=== PATIENT | female | born 1965 | race Caucasian/White ===

== ENCOUNTER 2019-06-13 04:58 | Day surgery (SDC) | payer BC ==
[2019-06-13] MEDS ORDERED: DEXAMETHASONE 4 MG/ML 1ML VIAL IVP ONE (04:59)
[2019-06-13] MEDS ORDERED: FENTANYL PF 100MCG/2ML VIAL IV ONE (04:59)
[2019-06-13] MEDS ORDERED: PROPOFOL 10 MG/ML VIAL IV ONE (04:59)
[2019-06-13] MEDS ORDERED: MIDAZOLAM HCL 2MG/2ML VIAL IV ONE (04:59)
[2019-06-13] MEDS ORDERED: ONDANSETRON HCL IV 4 MG/2 ML VIAL IVP ONE (04:59)
[2019-06-13] MEDS ORDERED: SEVOFLURANE 250 ML INH ONE (04:59)
[2019-06-13] MEDS ORDERED: LIDOCAINE 2% MDV (20MG/ML) 20ML VIAL IV ONE (04:59)
[2019-06-13] MEDS: RINGERS SOLUTION,LACTATED 1,000 ML IV ONE (05:30)
[2019-06-13] MEDS: METOCLOPRAMIDE 10 MG TABLET PO ONE (05:47)
[2019-06-13] MEDS: SCOPOLAMINE 1 PATCH TDSY TD ONE (05:47)
[2019-06-13] MEDS: FAMOTIDINE 20MG TABLET PO ONE (05:47)
[2019-06-13] MEDS: HYDROCODONE/APAP 5/325MG TABLET PO ONE (08:30)
--- NOTE | 2019-06-13 08:48 | Operative Note ---
DATE OF SURGERY: 06/13/2019 PREOPERATIVE DIAGNOSIS: POST MENOPAUSAL BLEEDING AND CERVICAL STENOSIS. POSTOPERATIVE DIAGNOSIS: POST MENOPAUSAL BLEEDING AND CERVICAL STENOSIS. OPERATION: OPERATIVE HYSTEROSCOPY, DILATATION AND CURETTAGE. SURGEON: Meryl Saba D.O. ANESTHESIA: General. SPECIMEN: Endometrial curettings. ESTIMATED BLOOD LOSS: Minimal. FLUIDS: Per Anesthesia drains 200 ml of clear yellow urine. FINDINGS: Anterior cervix, cervical stenosis noted, once cervix gently dilated the hysteroscope was inserted and bilateral ostia were visualized, uterus mid position and sounded to 7 cm. PROCEDURE: The patient was taken to the Operating Room and general anesthesia was obtained without difficulty. She was prepped and draped in a normal sterile fashion in dorsal lithotomy position. A weighted speculum was placed in the patient's vagina and the anterior lip of the cervix was grasped with a single tooth tenaculum. The cervix was gently dilated with Hanks dilators and sounded to 7 cm. The hysteroscope was then primed according to protocol and gently introduced to the uterine fundus with findings as noted above. Pictures were taken and both ostia were seen. The hysteroscope was then converted to operative hysteroscope and a direct visualization endometrial curettage was performed including the anterior endometrial round mass. The hysteroscope was then removed and then sharp curettage was then performed circumferentially until a gritty texture was noted. The single tooth tenaculum was removed from the anterior lip of the cervix. Excellent hemostasis was noted. All instruments were removed from the vagina. The patient tolerated the procedure well. Sponge and needle counts were correct. The patient was taken to the Recovery Room in weakened and stable condition. JOB NUMBER: [id number] [facility]
== END 2019-06-13 08:50 | disposition home or self-care (01) ==
LOC: SUR 04:58
PROVIDERS: ATTEND Student in an Organized Health Care Education/Training Program
DX: N95.0 Postmenopausal bleeding (principal); N88.2 Stricture and stenosis of cervix uteri; E03.9 Hypothyroidism, unspecified; E66.9 Obesity, unspecified
CPT/HCPCS: J2405; J7120